=== PATIENT | male | born 1950 | race Caucasian/White ===

== ENCOUNTER 2023-01-07 14:05 | Inpatient (IN) | payer SELFPAY ==
[2023-01-07 16:03] LABS: BASO % 0.5 % (0-2.0); EOS % 2.8 % (0-4.5); HEMATOCRIT 44.4 % (35.4-49); HEMOGLOBIN 15.1 GM/dL (11.7-16.9); LYMPH % 35.4 % (8-40); MCH 31.1 pg (25.7-33.7); MCHC 33.9 g/dl (32.0-35.9); MEAN CELL VOLUME 91.9 fl (80-96); MONO % 7.2 % (3.8-10.2); NEUT % 54.1 % (42.8-82.8); PLATELET COUNT 151 10^3/uL (134-434); RBC 4.83 M/mm3 (4.00-5.60); RDW 13.1 % (11.9-15.9); WHITE BLOOD COUNT 4.5 K/mm3 (4.0-10.0)
[2023-01-07 16:29] LABS: POTASSIUM 4.2 mmol/L (3.5-5.1)
[2023-01-07 16:31] LABS: ALBUMIN 3.9 g/dl (3.4-5.0); BLOOD UREA NITROGEN 24.7 mg/dL (7-18); CALCIUM 8.8 mg/dL (8.5-10.1)
[2023-01-07 16:34] LABS: CREATININE 0.9 mg/dL (0.55-1.3)
[2023-01-07 16:36] LABS: BILIRUBIN,TOTAL 0.5 mg/dL (0.2-1); TOT PROT 7.4 g/dl (6.4-8.2)
[2023-01-07] MEDS ORDERED: IBUPROFEN 400 MG TABLET (FP) PO ONE ×2 (17:08→17:16)
[2023-01-07 18:48] LABS: EPI CELLS 2 /uL (0-25.1); HYALINE CASTS 0 /uL (0-3.1); PH,URINE 5.5 (5.0-8.0); URINE APPEARANCE TURBID; URINE BACTERIA 4 /uL (0-1359); URINE BILIRUBIN NEGATIVE (NEGATIVE); URINE COLOR YELLOW; URINE GLUCOSE (UA) NEGATIVE (NEGATIVE); URINE KETONE TRACE (NEGATIVE); URINE LEUK ESTERASE NEGATIVE (NEGATIVE); URINE NITRITE NEGATIVE (NEGATIVE); URINE PROTEIN 1+ (NEGATIVE); URINE RBC 5 /uL (0-23.9); URINE WBC 2 /uL (0-25.8)
[2023-01-07] MEDS ORDERED: ENOXAPARIN NA (PORCINE) 40 MG/0.4 ML DISP.SYRIN SQ ONE (22:05)
[2023-01-07] MEDS: ENOXAPARIN NA (PORCINE) 40 MG/0.4 ML DISP.SYRIN SQ SCH (22:13)
[2023-01-07] MEDS ORDERED: ACETAMINOPHEN 325 MG TABLET (FP) PO PRN (22:46)
[2023-01-08] MEDS: ACETAMINOPHEN 325 MG TABLET (FP) PO SCH ×4 (00:21→18:16)
[2023-01-08 03:35] VITALS: BMI 27.3
[2023-01-08 08:20] LABS: BASO % 0.6 % (0-2.0); EOS % 3.1 % (0-4.5); HEMATOCRIT 45.2 % (35.4-49); HEMOGLOBIN 15.2 GM/dL (11.7-16.9); LYMPH % 31.2 % (8-40); MCHC 33.7 g/dl (32.0-35.9); MEAN CELL VOLUME 92.1 fl (80-96); MEAN PLT VOLUME 9.5 fl (7.5-11.1); MONO % 6.5 % (3.8-10.2); NEUT % 58.6 % (42.8-82.8); PLATELET COUNT 134 10^3/uL (134-434); RBC 4.91 M/mm3 (4.00-5.60); RDW 12.7 % (11.9-15.9); WHITE BLOOD COUNT 3.9 K/mm3 (4.0-10.0)
[2023-01-08 08:40] LABS: POTASSIUM 4.1 mmol/L (3.5-5.1)
[2023-01-08 08:42] LABS: CALCIUM 8.6 mg/dL (8.5-10.1)
[2023-01-08 08:43] LABS: ALBUMIN 3.7 g/dl (3.4-5.0)
[2023-01-08 08:46] LABS: CREATININE 0.8 mg/dL (0.55-1.3)
[2023-01-08 08:47] LABS: BILIRUBIN,TOTAL 0.7 mg/dL (0.2-1); TOT PROT 6.9 g/dl (6.4-8.2)
[2023-01-08] MEDS: amLODIPine BESYLATE 5 MG TABLET (FP) PO SCH (09:27)
[2023-01-08] MEDS: ENOXAPARIN NA (PORCINE) 40 MG/0.4 ML DISP.SYRIN SQ SCH (09:27)
[2023-01-08] MEDS: ASPIRIN COATED 81 MG TABLET.EC PO SCH (15:24)
[2023-01-08] MEDS: ATORVASTATIN CA 40 MG TABLET (FP) PO SCH (21:39)
[2023-01-09] MEDS: ACETAMINOPHEN 325 MG TABLET (FP) PO SCH ×5 (02:03→23:55)
[2023-01-09] MEDS ORDERED: REGADENOSON 0.4 MG/5 ML PRE-FILLED SYRINGE IVPUSH ONE ×2 (11:07→11:45)
[2023-01-09] MEDS: ENOXAPARIN NA (PORCINE) 40 MG/0.4 ML DISP.SYRIN SQ SCH (13:14)
[2023-01-09] MEDS: amLODIPine BESYLATE 5 MG TABLET (FP) PO SCH (13:18)
[2023-01-09] MEDS: ASPIRIN COATED 81 MG TABLET.EC PO SCH (13:18)
[2023-01-09] MEDS: ATORVASTATIN CA 40 MG TABLET (FP) PO SCH (21:05)
[2023-01-10] MEDS: ACETAMINOPHEN 325 MG TABLET (FP) PO SCH ×2 (06:05→11:21)
[2023-01-10 07:52] LABS: BASO % 0.6 % (0-2.0); HEMATOCRIT 44.8 % (35.4-49); HEMOGLOBIN 15.2 GM/dL (11.7-16.9); LYMPH % 38.6 % (8-40); MCH 31.3 pg (25.7-33.7); MEAN CELL VOLUME 92.1 fl (80-96); MONO % 8.3 % (3.8-10.2); NEUT % 49.5 % (42.8-82.8); PLATELET COUNT 141 10^3/uL (134-434); RBC 4.87 M/mm3 (4.00-5.60); WHITE BLOOD COUNT 4.2 K/mm3 (4.0-10.0)
[2023-01-10 08:08] LABS: POTASSIUM 4.1 mmol/L (3.5-5.1)
[2023-01-10 08:13] LABS: ALBUMIN 3.7 g/dl (3.4-5.0); CALCIUM 8.5 mg/dL (8.5-10.1)
[2023-01-10 08:14] LABS: BLOOD UREA NITROGEN 24.5 mg/dL (7-18)
[2023-01-10 08:16] LABS: CREATININE 0.9 mg/dL (0.55-1.3)
[2023-01-10 08:18] LABS: BILIRUBIN,TOTAL 0.7 mg/dL (0.2-1); TOT PROT 6.9 g/dl (6.4-8.2)
[2023-01-10] MEDS: amLODIPine BESYLATE 5 MG TABLET (FP) PO SCH (10:48)
[2023-01-10] MEDS: ENOXAPARIN NA (PORCINE) 40 MG/0.4 ML DISP.SYRIN SQ SCH (10:48)
[2023-01-10] MEDS ORDERED: LIDOCAINE 5% TOPICAL PATCH TP SCH (11:00)
[2023-01-10 12:26] VITALS: BP 130/64; PULSE 48; RESP 17; TEMP 98.4
[2023-01-10] MEDS ORDERED: LIDOCAINE PATCH REMOVAL MC SCH (22:00)
== END 2023-01-10 17:11 | disposition home or self-care (01) | DRG 201 ==
LOC: JER 14:05 → JERBED 18:27 → J4S 23:13
PROVIDERS: ADMIT Student in an Organized Health Care Education/Training Program; ATTEND Nurse Practitioner Family
DX: I44.0 Atrioventricular block, first degree (principal); R00.1 Bradycardia, unspecified; M10.9 Gout, unspecified; N40.0 Benign prostatic hyperplasia without lower urinary tract symptoms; I10 Essential (primary) hypertension; G47.30 Sleep apnea, unspecified
CPT/HCPCS: 36415; 71045-TC-FY; 78452-TC; 80053; 80061; 81003; 83036; 83690; 83735; 84443; 84484; 84550; 85025; 93005; 93010; 93017; 93306-TC; 99285-25; A9502; J2785

== ENCOUNTER 2023-01-21 22:29 | Emergency (ER) | payer OTHER ==
[2023-01-21 22:43] VITALS: RESP 18; BMI 28.3
[2023-01-21 23:29] LABS: BASO % 0.5 % (0-2.0); EOS % 3.7 % (0-4.5); HEMATOCRIT 42.5 % (35.4-49); HEMOGLOBIN 14.8 GM/dL (11.7-16.9); LYMPH % 28.7 % (8-40); MCH 31.3 pg (25.7-33.7); MCHC 34.8 g/dl (32.0-35.9); MEAN CELL VOLUME 90.1 fl (80-96); MEAN PLT VOLUME 8.3 fl (7.5-11.1); MONO % 8.3 % (3.8-10.2); NEUT % 58.8 % (42.8-82.8); PLATELET COUNT 160 10^3/uL (134-434); RBC 4.72 M/mm3 (4.00-5.60); RDW 13.3 % (11.9-15.9); WHITE BLOOD COUNT 5.6 K/mm3 (4.0-10.0)
[2023-01-21 23:34] LABS: INR 1.03 (0.83-1.09); PROTHROMBIN TIME (PATIENT) 11.9 SEC (9.7-13.0)
[2023-01-21 23:37] LABS: ACTIVATED PTT 29.9 SECONDS (25.2-36.5)
[2023-01-21 23:44] VITALS: BP 128/73; PULSE 52; TEMP 98.5
[2023-01-21 23:44] LABS: POTASSIUM 4.4 mmol/L (3.5-5.1)
[2023-01-21 23:45] LABS: ALBUMIN 3.7 g/dl (3.4-5.0); CALCIUM 8.6 mg/dL (8.5-10.1)
[2023-01-21 23:47] LABS: BLOOD UREA NITROGEN 22.7 mg/dL (7-18)
[2023-01-22 00:26] LABS: BILIRUBIN,TOTAL 0.5 mg/dL (0.2-1)
[2023-01-22 01:30] LABS: EPI CELLS 2 /uL (0-25.1); HYALINE CASTS 0 /uL (0-3.1); URINE APPEARANCE CLEAR; URINE BILIRUBIN 1+ (NEGATIVE); URINE COLOR RED; URINE GLUCOSE (UA) NEGATIVE (NEGATIVE); URINE KETONE NEGATIVE (NEGATIVE); URINE LEUK ESTERASE 1+ (NEGATIVE); URINE NITRITE POSITIVE (NEGATIVE); URINE PROTEIN 1+ (NEGATIVE); URINE RBC 16 /uL (0-23.9); URINE WBC 2 /uL (0-25.8)
== END 2023-01-22 02:36 | disposition home or self-care (01) ==
LOC: JER 22:29
DX: R29.810 Facial weakness (principal); R22.32 Localized swelling, mass and lump, left upper limb; R22.0 Localized swelling, mass and lump, head; R51.9 Headache, unspecified; R20.0 Anesthesia of skin; G51.0 Bell's palsy
CPT/HCPCS: 36415; 70450-TC; 80053; 80061; 81003; 82550; 82553; 82962; 83036; 84484; 85025; 85610; 85730; 86850; 86900; 86901; 93005; 93010; 99285-25